=== PATIENT | male | born 1985 | race African-American/Black ===

== ENCOUNTER 2019-08-16 22:07 | Emergency (ER) | payer OTHER ==
[~2019-08-16] VITALS: Ht 172.7 cm; Wt 72.6 kg
[2019-08-16] MEDS ORDERED: QUET100T PO (22:16)
--- NOTE | 2019-08-16 22:25 | NUR ---
Dr. Quinteros at bedside for MSE
[2019-08-16] MEDS ORDERED: QUETIAPINE FUMARATE 25 MG TABLET PO ONE (22:30)
[2019-08-16] MEDS ORDERED: QUETIAPINE FUMARATE 25 MG TABLET ONE (22:37)
[2019-08-16 22:43] LABS: BASOPHILS # (AUTO) 0.1 K/uL (0.0-8.0); BASOPHILS % (AUTO) 0.6 % (0.0-2.0); EOSINOPHILS # (AUTO) 0.8 K/uL (0.0-0.7); EOSINOPHILS % (AUTO) 7.7 % (0.0-7.0); HEMATOCRIT 46.3 % (36.7-47.1); HEMOGLOBIN 15.5 g/dL (12.5-16.3); LYMPHOCYTES # (AUTO) 3.2 K/uL (20.0-40.0); LYMPHOCYTES % (AUTO) 30.3 % (20.5-51.5); MEAN CORPUSCULAR HEMOGLOBIN 29.4 uug (23.8-33.4); MEAN CORPUSCULAR HGB CONC 34 g/dL (32.5-36.3); MONOCYTES # (AUTO) 0.5 K/uL (2.0-10.0); NEUTROPHILS # (AUTO) 5.9 K/uL (1.8-8.9); NEUTROPHILS % (AUTO) 56.4 % (38.5-71.5); PLATELET COUNT (AUTO) 160 K/uL (152-348); RED BLOOD CELL COUNT(AUTO) 5.26 MIL/uL (4.06-5.63); WHITE BLOOD COUNT (AUTO) 10.5 K/uL (3.6-10.2)
[2019-08-16 22:55] LABS: CARBON DIOXIDE 31 mmol/L (21-32); CHLORIDE 102 mmol/L (98-107); CREATININE 1.3 mg/dL (0.6-1.3); GLUCOSE 85 mg/dL (74-106); POTASSIUM 3.3 mmol/L (3.5-5.1); UREA NITROGEN, BLOOD 14 mg/dL (7-18)
[2019-08-16 22:56] LABS: *BILIRUBIN,URIN NEGATIVE (NEGATIVE); *BLOOD, URINE 1+ (NEGATIVE); *CLARITY,URINE CLEAR (CLEAR); *COLOR,URINE YELLOW (YELLOW); *KETONES,URINE NEGATIVE (NEGATIVE); *UROBILINOGEN,URINE 0.2 E.U./dl (NORMAL); LEUKOCYTE ESTERASE ,URINE NEGATIVE (NEGATIVE); NITRITE, URINE NEGATIVE (NEGATIVE); PH,URINE 6.5 (5.0-8.0); UGLUCOSE NEGATIVE (NEGATIVE)
[2019-08-16 23:00] LABS: ALANINE AMINOTRANSFERASE 46 U/L (16-63); ALKALINE PHOSPHATASE 78 U/L (50-136); ASPARTATE AMINOTRANSFERASE 31 U/L (15-37); BILIRUBIN,DIRECT 0.2 mg/dL (0.0-0.2); BILIRUBIN,TOTAL 0.8 mg/dL (0.2-1.0); TOTAL PROTEIN, SERUM 7.7 g/dL (6.4-8.2)
[2019-08-16 23:01] LABS: ACETAMINOPHEN < 2.0 ug/mL (10-30); ETHANOL < 3 MG/DL (0-0)
[2019-08-16 23:02] LABS: *AMPHETAMINE, URINE NEGATIVE (NEGATIVE); *BARBITURATE, URINE NEGATIVE (NEGATIVE); *CANNABINOID, URINE POSITIVE (NEGATIVE); *COCCAINE, URINE NEGATIVE (NEGATIVE); *OPIATE, URINE NEGATIVE (NEGATIVE); *PHENCYCLIDINE SCREEN,URINE NEGATIVE (NEGATIVE)
--- NOTE | 2019-08-16 23:04 | NUR ---
Pt is medically cleared by Dr. Quinteros
[2019-08-16 23:07] LABS: BACTERIA,URINE FEW /HPF (NONE SEEN); SQUAMOUS EPITHELIAL CELL,UR FEW /HPF (NONE SEEN); WBC,URINE 0-3 /HPF (0-3)
--- NOTE | 2019-08-16 23:12 | NUR ---
Called Jackelyn Arana awaiting for call back
[2019-08-16] MEDS ORDERED: POTASSIUM CHLORIDE 20 MEQ TAB.PRT.SR PO ONE (23:15)
[2019-08-16] MEDS ORDERED: POTASSIUM CHLORIDE 20 MEQ TAB.PRT.SR ONE (23:29)
--- NOTE | 2019-08-16 23:41 | NUR ---
Called [facility] Spoke with ANNE-MARIE to ask for a male bed for a voluntary psych admission. He said to fax clinicals to: [phone]. Relayed information to Aneta Gtz and Dr. Quinteros. Addendum: 08/17/19 at 0000 by AEJORGE LUISGIO called [phone]
--- NOTE | 2019-08-17 00:01 | NUR ---
Faxed Clinicals to [facility] Confirmed receive of the fax with [facility] Awaiting for call back regarding bed status
--- NOTE | 2019-08-17 00:59 | NUR ---
Received call from [facility]/intake Pt accepted for admission Receiving physician: Dr. Madden Pt [place] for transfer at 0700 OK to give report to Unit
--- NOTE | 2019-08-17 03:36 | NUR ---
pt in bed asleep no s/s of distress respirations even and unlabored will continue to monitor
--- NOTE | 2019-08-17 03:56 | NUR ---
per Dr. Quinteros, MARZENA to transfer pt via taxi to [facility]
--- NOTE | 2019-08-17 04:05 | NUR ---
report given to ROSALIA cota at [facility].
--- NOTE | 2019-08-17 04:17 | NUR ---
[facility] contacted for pickup.ETA will be 10-20 minutes. Aneta LINDSEY notified.
--- NOTE | 2019-08-17 04:22 | NUR ---
ETA provided to Olivia DURHAM
--- NOTE | 2019-08-17 04:41 | NUR ---
Transfered pt via taxi, cab#62 pt a/ox4. able to speak in complete sentences. follows commands respirations even and unlabored no s/s of distress all belongings with pt ambulatory with steady gait
== END 2019-08-17 04:41 ==
LOC: ER 22:12
DX: R44.0 Auditory hallucinations (principal); F22 Delusional disorders
CPT/HCPCS: 36415; 80048; 80076; 80307 ×2; 80329; 81001; 85025; 99285; G0480; A4663

== ENCOUNTER 2019-09-27 15:19 | Emergency (ER) | payer OTHER ==
[~2019-09-27] VITALS: Ht 175.3 cm; Wt 68.0 kg
[~2019-09-27 15:19] MED LIST: QUET100T PO
--- NOTE | 2019-09-27 15:53 | NUR ---
patient placed on a hospital gown. all belongings taken from patient. provided safe environment. Stock Unloader made aware. no 1:1 sitter available at this time.
[2019-09-27] MEDS ORDERED: OLANZAPINE 5 MG TABLET PO ONE (16:00)
[2019-09-27 16:02] LABS: *BILIRUBIN,URIN NEGATIVE (NEGATIVE); *BLOOD, URINE NEGATIVE (NEGATIVE); *CLARITY,URINE CLEAR (CLEAR); *COLOR,URINE YELLOW (YELLOW); *KETONES,URINE TRACE (NEGATIVE); LEUKOCYTE ESTERASE ,URINE NEGATIVE (NEGATIVE); NITRITE, URINE NEGATIVE (NEGATIVE); PH,URINE 7.5 (5.0-8.0); UGLUCOSE NEGATIVE (NEGATIVE)
[2019-09-27 16:07] LABS: BASOPHILS % (AUTO) 0.7 % (0.0-2.0); EOSINOPHILS # (AUTO) 0.4 K/uL (0.0-0.7); EOSINOPHILS % (AUTO) 6.6 % (0.0-7.0); HEMATOCRIT 40.7 % (36.7-47.1); HEMOGLOBIN 13.7 g/dL (12.5-16.3); LYMPHOCYTES # (AUTO) 2.8 K/uL (20.0-40.0); LYMPHOCYTES % (AUTO) 45.1 % (20.5-51.5); MEAN CORPUSCULAR HEMOGLOBIN 29.4 uug (23.8-33.4); MEAN CORPUSCULAR HGB CONC 34 g/dL (32.5-36.3); MEAN CORPUSCULAR VOLUME 87.7 fL (73.0-96.2); MONOCYTES # (AUTO) 0.4 K/uL (2.0-10.0); MONOCYTES % (AUTO) 6.9 % (0.0-11.0); NEUTROPHILS # (AUTO) 2.5 K/uL (1.8-8.9); NEUTROPHILS % (AUTO) 40.7 % (38.5-71.5); PLATELET COUNT (AUTO) 147 K/uL (152-348); RED BLOOD CELL COUNT(AUTO) 4.65 MIL/uL (4.06-5.63); WHITE BLOOD COUNT (AUTO) 6.1 K/uL (3.6-10.2)
[2019-09-27] MEDS ORDERED: OLANZAPINE 5 MG TABLET ONE (16:13)
[2019-09-27 16:17] LABS: *AMPHETAMINE, URINE NEGATIVE (NEGATIVE); *BARBITURATE, URINE NEGATIVE (NEGATIVE); *CANNABINOID, URINE POSITIVE (NEGATIVE); *COCCAINE, URINE NEGATIVE (NEGATIVE); *OPIATE, URINE NEGATIVE (NEGATIVE); *PHENCYCLIDINE SCREEN,URINE NEGATIVE (NEGATIVE)
[2019-09-27 16:24] LABS: ALANINE AMINOTRANSFERASE 28 U/L (16-63); ALKALINE PHOSPHATASE 74 U/L (50-136); ASPARTATE AMINOTRANSFERASE 30 U/L (15-37); BILIRUBIN,DIRECT 0.1 mg/dL (0.0-0.2); BILIRUBIN,TOTAL 0.5 mg/dL (0.2-1.0); CARBON DIOXIDE 30 mmol/L (21-32); CHLORIDE 103 mmol/L (98-107); CREATININE 1.1 mg/dL (0.6-1.3); GLUCOSE 87 mg/dL (74-106); UREA NITROGEN, BLOOD 13 mg/dL (7-18)
[2019-09-27 16:25] LABS: ACETAMINOPHEN < 2.0 ug/mL (10-30)
[2019-09-27] MEDS ORDERED: QUETIAPINE FUMARATE 200 MG TABLET PO STA (16:29)
[2019-09-27 16:31] LABS: ETHANOL 64 MG/DL (0-0)
--- NOTE | 2019-09-27 16:36 | NUR ---
Pt remains calm and cooperative, pending lab results.
[2019-09-27] MEDS ORDERED: QUETIAPINE FUMARATE 200 MG TABLET ONE (16:38)
--- NOTE | 2019-09-27 16:57 | NUR ---
PATIENT HAS BEEN MEDICALLY CLEARED BY DR. RASMUSSEN
--- NOTE | 2019-09-27 17:20 | NUR ---
Spoke with Ana at [facility] in [facility] intake department. Requested information faxed to [phone]. States she will review the information and call back.
--- NOTE | 2019-09-27 18:03 | NUR ---
Patient in bed sleeping but easily arousable. Breathing even and unlabored. NAD noted
--- NOTE | 2019-09-27 18:42 | NUR ---
faxed over face lai and dao confirmed receipt.
--- NOTE | 2019-09-27 19:04 | NUR ---
report given to merna LINDSEY
--- NOTE | 2019-09-27 19:22 | NUR ---
Received call from [facility], states they did not receive all pages of clinicals. Faxed over summary report to George at [phone].
--- NOTE | 2019-09-27 19:41 | NUR ---
Called [facility] intake (phone#[phone]) & spoke with George who confirmed he received the patient's clinical report. States he will call back when there is update from auto mechanic supervisor. Patient is resting with eyes closed at this time. Respirations even & unlabored. Will continue to monitor.
[2019-09-27 19:49] LABS: BACTERIA,URINE NONE SEEN /HPF (NONE SEEN); RBC,URINE 0-3 /HPF (0-3); WBC,URINE 0-3 /HPF (0-3)
[2019-09-27 19:50] LABS: MUCUS,URINE FEW /LPF (0-FEW)
--- NOTE | 2019-09-27 20:53 | NUR ---
Received call from George bernard states patient has been accepted at [facility]. Phone# for report is [phone]. Called [facility] for transport. ETA pickup in 30 to 45 min.
--- NOTE | 2019-09-27 21:23 | NUR ---
[facility] Addendum: 09/27/19 at 2123 by TPADOLINA [facility] [address] here to transport patient to [facility]. Report given to Jennifer. All patient's belongings given to managing jeweler.
== END 2019-09-27 21:32 ==
LOC: ER 15:19
DX: F23 Brief psychotic disorder (principal); R45.851 Suicidal ideations; F10.229 Alcohol dependence with intoxication, unspecified; F15.20 Other stimulant dependence, uncomplicated; Y90.3 Blood alcohol level of 60-79 mg/100 ml; F17.290 Nicotine dependence, other tobacco product, uncomplicated; F12.20 Cannabis dependence, uncomplicated; Z91.5 Personal history of self-harm; Z59.0 Homelessness; Z86.59 Personal history of other mental and behavioral disorders
CPT/HCPCS: 36415; 80048; 80076; 80307 ×2; 80329; 81001; 85025; 87426; 99285; 99406; G0480; A4663

== ENCOUNTER 2020-09-16 02:39 | Emergency (ER) | payer OTHER ==
[~2020-09-16] VITALS: Ht 170.2 cm; Wt 72.6 kg
[2020-09-16] MEDS ORDERED: ativan (03:27)
[2020-09-16] MEDS ORDERED: QUET300T2 PO (03:27)
--- NOTE | 2020-09-16 03:53 | NUR ---
Patient remains in restroom. Each time I go to room to retrieve blood specimens and obtain ekg pt desires to leave and provide urine sample.
[2020-09-16 04:37] LABS: HEMATOCRIT 47.1 % (36.7-47.1); MEAN CORPUSCULAR HEMOGLOBIN 31.2 uug (23.8-33.4); MEAN CORPUSCULAR VOLUME 90.6 fL (73.0-96.2); PLATELET COUNT (AUTO) 176 K/uL (152-348)
[2020-09-16 04:50] LABS: CARBON DIOXIDE 27 mmol/L (21-32); CHLORIDE 104 mmol/L (98-107); CREATININE 1.5 mg/dL (0.6-1.3); GLUCOSE 86 mg/dL (74-106); POTASSIUM 3.3 mmol/L (3.5-5.1); UREA NITROGEN, BLOOD 13 mg/dL (7-18)
[2020-09-16 04:55] LABS: ETHANOL < 0 MG/DL (0-0)
[2020-09-16 04:56] LABS: ALANINE AMINOTRANSFERASE 44 U/L (16-63); ALKALINE PHOSPHATASE 77 U/L (50-136); ASPARTATE AMINOTRANSFERASE 43 U/L (15-37); BILIRUBIN,DIRECT 0.2 mg/dL (0.0-0.2); BILIRUBIN,TOTAL 0.7 mg/dL (0.2-1.0); CREATINE KINASE, TOTAL 693 U/L (39-308); TOTAL PROTEIN, SERUM 8.3 g/dL (6.4-8.2)
[2020-09-16 04:57] LABS: ACETAMINOPHEN < 0.0 ug/mL (10-30)
[2020-09-16 05:03] LABS: THYROID STIMULATING HORMONE 1.954 mIU/mL (0.358-3.740)
[2020-09-16] MEDS ORDERED: LORAZEPAM 2 MG/1 ML VIAL ONE ×4 (06:06→22:27)
[2020-09-16 06:18] LABS: *BLOOD, URINE 2+ (NEGATIVE); *CLARITY,URINE CLEAR (CLEAR); *COLOR,URINE YELLOW (YELLOW); *KETONES,URINE 1+ (NEGATIVE); LEUKOCYTE ESTERASE ,URINE NEGATIVE (NEGATIVE); NITRITE, URINE NEGATIVE (NEGATIVE); UGLUCOSE NEGATIVE (NEGATIVE)
[2020-09-16 06:21] LABS: *BILIRUBIN,URIN 1+ (NEGATIVE)
[2020-09-16] MEDS ORDERED: LORAZEPAM 2 MG/1 ML VIAL IV ONE ×4 (06:30→22:15)
[2020-09-16 06:32] LABS: *AMPHETAMINE, URINE POSITIVE (NEGATIVE); *CANNABINOID, URINE POSITIVE (NEGATIVE); *COCCAINE, URINE POSITIVE (NEGATIVE); *OPIATE, URINE NEGATIVE (NEGATIVE); *PHENCYCLIDINE SCREEN,URINE NEGATIVE (NEGATIVE)
[2020-09-16 06:37] LABS: BACTERIA,URINE NONE SEEN /HPF (NONE SEEN); MUCUS,URINE FEW /LPF (0-FEW); SQUAMOUS EPITHELIAL CELL,UR FEW /HPF (NONE SEEN); WBC,URINE 0-3 /HPF (0-3)
[2020-09-16] MEDS ORDERED: OLANZAPINE 5 MG TABLET ONE (07:10)
[2020-09-16] MEDS ORDERED: OLANZAPINE 5 MG TABLET PO ONE (07:15)
--- NOTE | 2020-09-16 07:19 | NUR ---
recived the pt in the room, pt walking around, does not want to stay in his room, security at door.
--- NOTE | 2020-09-16 07:45 | NUR ---
Pt is paranoid, stands at the door in room 3, keeps walking around in the ER and attempted to walk into another pt's room. Pt refused to go back to him room, xin little was called. Pt was brought back to room 3 after verbal de-escalation. Requested 1:1 sitter for safety, per nursing supervisor electrolytic tinning there is no one available, per security they are short staffed and do not have anyone availabe.
--- NOTE | 2020-09-16 07:51 | NUR ---
late entry: xin dewitt called, security at bedside.
[2020-09-16] MEDS ORDERED: HALOPERIDOL LACTATE 5 MG/1 ML VIAL IV ONE ×2 (08:15→10:00)
[2020-09-16] MEDS ORDERED: diphenhydrAMINE 50 MG/1 ML VIAL IV ONE (08:15)
--- NOTE | 2020-09-16 08:19 | NUR ---
pt wandering about in er, trying to look inside pts room, visual hallucination of seeing some body. md notified, meds order recieved.
[2020-09-16] MEDS ORDERED: diphenhydrAMINE 50 MG/1 ML VIAL ONE (08:21)
[2020-09-16] MEDS ORDERED: HALOPERIDOL LACTATE 5 MG/1 ML VIAL ONE ×2 (08:22→10:23)
--- NOTE | 2020-09-16 08:43 | NUR ---
code gra called, security at bedside.
--- NOTE | 2020-09-16 09:36 | NUR ---
Sampson abdi in ED - 09/21/20 at 1714 by SONYA xin dewitt called, security at bedside placed the pt on 4 point restaint.
--- NOTE | 2020-09-16 09:36 | NUR ---
code dewitt called.
--- NOTE | 2020-09-16 09:38 | NUR ---
pt coming out of room, talking loud, interrupting pt care,
--- NOTE | 2020-09-16 09:45 | NUR ---
security placed restraint on the pt per Dr. Otero order.
[2020-09-16] MEDS ORDERED: IV NORMAL SALINE 1000 ML BAG IV ONE (10:00)
--- NOTE | 2020-09-16 12:32 | NUR ---
PT RESTING, NO SIGN OF DISTRESS, VSS.
--- NOTE | 2020-09-16 14:26 | NUR ---
pt resting, arousable, moving in bed.
--- NOTE | 2020-09-16 16:10 | NUR ---
noticed change on the ekg on the monitor. aware. Addendum: 09/16/20 at 1727 by SONYA pt denies any cp, palpitation,nausea/vomitting, dizziness, sob at this time.
[2020-09-16 16:37] LABS: CREATININE 1.2 mg/dL (0.6-1.3); POTASSIUM 3.8 mmol/L (3.5-5.1)
--- NOTE | 2020-09-16 16:51 | NUR ---
[facility] dinner tramago provided for pt. pts sister, Jacquelyn Yo called and gave her number for any concerns [phone]
--- NOTE | 2020-09-16 18:34 | NUR ---
change in bedisde ekg rhythm, please refer to print of the bedside ekg Addendum: 09/16/20 at 1835 by SONYA organized rhythm with p waves noticeable
--- NOTE | 2020-09-16 19:52 | NUR ---
Called Kailee from crisis team made aware of patient's condition. Per Kailee she will call us back for an ETA since she is on a call at the moment.
--- NOTE | 2020-09-16 21:16 | NUR ---
Kailee called facility and gave ETA of 40 minutes.
--- NOTE | 2020-09-16 21:58 | NUR ---
Kailee at bedside to eval patient.
--- NOTE | 2020-09-16 23:09 | NUR ---
Patient is resting comfortably in bed with eyes closed. Calm and cooperative. Denies any SI. VSS.
--- NOTE | 2020-09-16 23:48 | NUR ---
Faxed over another facesheet and COVID result to [facility]. .
--- NOTE | 2020-09-17 01:15 | NUR ---
VSS, denies any pain/discomfort. Patient resting in bed. Breathing is even and unlabored.
--- NOTE | 2020-09-17 01:43 | NUR ---
Called [facility] psych unit at [phone] and spoke with Leobardo, patient going to room 123 bed A.
--- NOTE | 2020-09-17 01:51 | NUR ---
Called [facility], spoke with Frank, provided with ETA of 75-90 mins.
--- NOTE | 2020-09-17 03:35 | NUR ---
Patient is resting comfortably in bed with eyes closed. Offered restroom privilages, pt refused. Denies any n/v/d. Denies any pain/discomfort at this moment.
--- NOTE | 2020-09-17 04:15 | NUR ---
0344 [address] AT BEDSIDE, [facility] MADE AWARE THAT PATIENT IS GOING TO THEIR FACILITY.
--- NOTE | 2020-09-17 04:21 | NUR ---
Patient Tranfers to outside Facility ([place]) Physician:Dr. Akbar Location: Room 123 Bed A
--- NOTE | 2020-09-21 09:45 | NUR ---
Sampson abdi in [facility] - 09/21/20 at 1715 by SONYA security placed restraint on the pt per md order.
== END 2020-09-17 04:26 ==
LOC: ER 02:42 → MERGE 02:42 → ER 09-17 04:26
DX: F19.159 Other psychoactive substance abuse with psychoactive substance-induced psychotic disorder, unspecified (principal); Z20.822 Contact with and (suspected) exposure to COVID-19; I44.1 Atrioventricular block, second degree; F20.9 Schizophrenia, unspecified; F31.9 Bipolar disorder, unspecified; F17.210 Nicotine dependence, cigarettes, uncomplicated; F15.10 Other stimulant abuse, uncomplicated; Z82.49 Family history of ischemic heart disease and other diseases of the circulatory system
CPT/HCPCS: 36415; 71045; 80048 ×2; 80076; 80299; 80307; 80320; 81001; 82550 ×2; 84443; 84484; 85025; 87426; 93005 ×3; 96361; 96374; 96375; 96376; 99291; J1200; J1630 ×2; J2060 ×4; 70030-TC; A4663; G0480; J7030

== ENCOUNTER 2020-10-03 03:29 | Emergency (ER) | payer OTHER ==
[~2020-10-03] VITALS: Ht 175.3 cm; Wt 72.6 kg
[~2020-10-03 03:29] MED LIST changes: +QUET300T2 PO; +ativan
[2020-10-03] MEDS ORDERED: LORAZEPAM 0.5 MG TABLET PO ONE (03:45)
[2020-10-03] MEDS ORDERED: OLANZAPINE 5 MG TABLET PO ONE (03:45)
[2020-10-03] MEDS ORDERED: OLAN5TAB3 PO (03:54)
[2020-10-03] MEDS ORDERED: LORA-259 PO (03:54)
[2020-10-03] MEDS ORDERED: OLANZAPINE 5 MG TABLET ONE (03:54)
[2020-10-03] MEDS ORDERED: LORAZEPAM 1 MG TABLET ONE (03:54)
--- NOTE | 2020-10-03 07:30 | NUR ---
Pt is anxious and paranoid with auditory hallucinations. Pt is wandering around in room 2 and in the ER department. Pt was assisted back to room 2b multiple times. Pt denies any SI/HI and ambulates with steady gait. Pt is high risk for elopement, 1:1 sitter was requested for pt safety but there is no one available at this time, ER is short staffed as well with only 2 RN's on duty.
[2020-10-03 07:41] LABS: CARBON DIOXIDE 26 mmol/L (21-32); CHLORIDE 107 mmol/L (98-107); CREATININE 1.1 mg/dL (0.6-1.3); GLUCOSE 82 mg/dL (74-106); POTASSIUM 3.4 mmol/L (3.5-5.1); UREA NITROGEN, BLOOD 15 mg/dL (7-18)
[2020-10-03 07:43] LABS: ETHANOL < 3 MG/DL (0-0)
[2020-10-03 07:47] LABS: ALANINE AMINOTRANSFERASE 42 U/L (16-63); ALKALINE PHOSPHATASE 55 U/L (50-136); ASPARTATE AMINOTRANSFERASE 32 U/L (15-37); BILIRUBIN,DIRECT 0.2 mg/dL (0.0-0.2); BILIRUBIN,TOTAL 0.6 mg/dL (0.2-1.0); TOTAL PROTEIN, SERUM 6.8 g/dL (6.4-8.2)
[2020-10-03 07:54] LABS: HEMATOCRIT 42.1 % (36.7-47.1); MEAN CORPUSCULAR HEMOGLOBIN 30.6 uug (23.8-33.4); MEAN CORPUSCULAR VOLUME 89.1 fL (73.0-96.2); PLATELET COUNT (AUTO) 125 K/uL (152-348)
[2020-10-03 08:03] LABS: *AMPHETAMINE, URINE POSITIVE (NEGATIVE); *CANNABINOID, URINE POSITIVE (NEGATIVE); *COCCAINE, URINE NEGATIVE (NEGATIVE); *OPIATE, URINE NEGATIVE (NEGATIVE); *PHENCYCLIDINE SCREEN,URINE NEGATIVE (NEGATIVE)
[2020-10-03 08:10] LABS: ACETAMINOPHEN 28.7 ug/mL (10-30)
--- NOTE | 2020-10-03 08:30 | NUR ---
DR BEACH RE-EVALUATED THE PT AND DISCUSSED PT's CASE WITH CRISIS MIDDLEWARE SYSTEMS ARCHITECT LUIS. PT WAS D/C'd TO HOME ACCORDING TO DR BEACH ORDERS. GAIT IS STABLE. NO S/S OF DISTRESS AT THE TIME OF DISCHARGE. PT DENIES PAIN. NO N/V, NO SOB. D/C INSTRUCTIONS GIVEN TO THE PT BY DR BEACH.
[2020-10-03 08:32] VITALS: BP 137/78
[2020-10-03 08:49] LABS: *BILIRUBIN,URIN NEGATIVE (NEGATIVE); *BLOOD, URINE 2+ (NEGATIVE); *CLARITY,URINE CLOUDY (CLEAR); *COLOR,URINE YELLOW (YELLOW); *KETONES,URINE NEGATIVE (NEGATIVE); *UROBILINOGEN,URINE 0.2 E.U./dl (NORMAL); LEUKOCYTE ESTERASE ,URINE NEGATIVE (NEGATIVE); NITRITE, URINE NEGATIVE (NEGATIVE); PH,URINE 5.5 (5.0-8.0); UGLUCOSE NEGATIVE (NEGATIVE)
[2020-10-03 09:32] LABS: MUCUS,URINE MANY /LPF (0-FEW)
[2020-10-03 09:35] LABS: RBC,URINE 0-3 /HPF (0-3); WBC,URINE 0-3 /HPF (0-3)
[2020-10-03 09:36] LABS: BACTERIA,URINE FEW /HPF (NONE SEEN)
== END 2020-10-03 08:34 | disposition home or self-care (01) ==
LOC: ER 03:32
DX: F15.129 Other stimulant abuse with intoxication, unspecified (principal); F15.150 Other stimulant abuse with stimulant-induced psychotic disorder with delusions; F20.9 Schizophrenia, unspecified; F31.9 Bipolar disorder, unspecified; F17.210 Nicotine dependence, cigarettes, uncomplicated; R03.0 Elevated blood-pressure reading, without diagnosis of hypertension; F41.9 Anxiety disorder, unspecified
CPT/HCPCS: 36415; 85025; A4663; G0480

== ENCOUNTER 2021-05-21 00:30 | Emergency (ER) | payer OTHER ==
[~2021-05-21] VITALS: Ht 175.3 cm; Wt 72.6 kg
[~2021-05-21 00:30] MED LIST changes: +LORA-259 PO; +OLAN5TAB3 PO
--- NOTE | 2021-05-21 00:58 | NUR ---
pt ambulated to bed 1b, feeling paranoid, hears voices. reports use of meth. hx schizophrenia pt c/o headache
[2021-05-21] MEDS ORDERED: ONDANSETRON ODT 4 MG TAB.RAPDIS SL ONE (01:00)
[2021-05-21] MEDS ORDERED: OLANZAPINE 5 MG TABLET PO ONE (01:00)
[2021-05-21] MEDS ORDERED: LORAZEPAM 0.5 MG TABLET PO ONE (01:00)
[2021-05-21] MEDS ORDERED: HYDROCODONE/APAP 5-325MG TABLET PO ONE (01:00)
--- NOTE | 2021-05-21 01:02 | NUR ---
Dr. Quinteros at bedside for MSE.
[2021-05-21] MEDS ORDERED: OLAN5TAB3 PO (01:14)
[2021-05-21] MEDS ORDERED: LORA-259 PO (01:14)
[2021-05-21] MEDS ORDERED: LORAZEPAM 1 MG TABLET ONE (01:16)
[2021-05-21] MEDS ORDERED: ONDANSETRON ODT 4 MG TAB.RAPDIS ONE (01:16)
[2021-05-21] MEDS ORDERED: OLANZAPINE 5 MG TABLET ONE (01:17)
[2021-05-21] MEDS ORDERED: HYDROCODONE/APAP 5-325MG TABLET ONE (01:17)
--- NOTE | 2021-05-21 02:05 | NUR ---
patient taken to ct scan
--- NOTE | 2021-05-21 02:29 | NUR ---
pt returned from cat scan.
--- NOTE | 2021-05-21 03:45 | NUR ---
call to [facility] still waiting on cat scan results.
--- NOTE | 2021-05-21 04:35 | NUR ---
v/s 120/60, p-72, rr 18 temp. 97.6 02 sat 97% room air. Dr lacey spoke and medically cleared patient for discharge, patient refused discharge and refused sign the discharge papers, security called. patient is too loud and scarred the other patients. patient was escorted by the security out of the ER.
[2021-05-21 04:42] VITALS: BP 120/60
== END 2021-05-21 04:45 | disposition home or self-care (01) ==
LOC: ER 00:35
DX: F22 Delusional disorders (principal); F20.9 Schizophrenia, unspecified; R51.9 Headache, unspecified; F15.10 Other stimulant abuse, uncomplicated; F31.9 Bipolar disorder, unspecified
CPT/HCPCS: 70450; A4663; Q0162

== ENCOUNTER 2021-05-21 06:31 | Emergency (ER) | payer SELFPAY ==
--- NOTE | 2021-05-21 07:19 | NUR ---
called pt in the waiting room. explained to the pt that he was seen and examined thoroughly last night here and was d/marlene home this morning with px and referal to psychiatrics, and that there is nothing else that can be done in the emergency department with the same complain that he was examined by Dr. Quinteros. pt decided to leave and not being triaged. emphasized that the pt has fill the px and start the meds immediately. pt left with stady gait, no sign of distress.
== END 2021-05-21 07:26 | disposition left against medical advice (07) ==
LOC: ER 06:34
DX: Z53.21 Procedure and treatment not carried out due to patient leaving prior to being seen by health care provider (principal)

== ENCOUNTER 2021-10-30 00:21 | Emergency (ER) | payer OTHER ==
[~2021-10-30] VITALS: Ht 175.3 cm; Wt 65.8 kg
--- NOTE | 2021-10-30 01:00 | NUR ---
Patient A/Ox4. NAD noted. Ambulatory with steady gait.
--- NOTE | 2021-10-30 01:05 | NUR ---
Dr. Quinteros at bedside. MSE in progress.
[2021-10-30 01:53] LABS: HEMATOCRIT 41.6 % (36.7-47.1); MEAN CORPUSCULAR HEMOGLOBIN 30.6 uug (23.8-33.4); MEAN CORPUSCULAR VOLUME 88.5 fL (73.0-96.2); PLATELET COUNT (AUTO) 157 K/uL (152-348)
[2021-10-30 02:06] LABS: ETHANOL 10 MG/DL (0-0)
[2021-10-30 02:09] LABS: ACETAMINOPHEN < 2.0 ug/mL (10-30); ALANINE AMINOTRANSFERASE 51 U/L (16-63); ALKALINE PHOSPHATASE 56 U/L (50-136); ASPARTATE AMINOTRANSFERASE 30 U/L (15-37); BILIRUBIN,DIRECT 0.1 mg/dL (0.0-0.2); BILIRUBIN,TOTAL 0.5 mg/dL (0.2-1.0); CARBON DIOXIDE 29 mmol/L (21-32); CHLORIDE 106 mmol/L (98-107); CREATININE 1.6 mg/dL (0.6-1.3); GLUCOSE 88 mg/dL (74-106); TOTAL PROTEIN, SERUM 7.7 g/dL (6.4-8.2); UREA NITROGEN, BLOOD 22 mg/dL (7-18)
[2021-10-30] MEDS ORDERED: OLANZAPINE 5 MG TABLET ONE (03:14)
[2021-10-30] MEDS ORDERED: OLANZAPINE 5 MG TABLET PO ONE (03:15)
[2021-10-30 03:36] LABS: *BILIRUBIN,URIN NEGATIVE (NEGATIVE); *BLOOD, URINE 1+ (NEGATIVE); *CLARITY,URINE CLEAR (CLEAR); *COLOR,URINE YELLOW (YELLOW); *KETONES,URINE TRACE (NEGATIVE); *UROBILINOGEN,URINE 0.2 E.U./dl (NORMAL); LEUKOCYTE ESTERASE ,URINE NEGATIVE (NEGATIVE); NITRITE, URINE NEGATIVE (NEGATIVE); UGLUCOSE NEGATIVE (NEGATIVE)
[2021-10-30 03:45] LABS: BACTERIA,URINE NONE SEEN /HPF (NONE SEEN); SQUAMOUS EPITHELIAL CELL,UR NONE SEEN /HPF (NONE SEEN); WBC,URINE 0-3 /HPF (0-3)
[2021-10-30 03:55] LABS: *AMPHETAMINE, URINE POSITIVE (NEGATIVE); *CANNABINOID, URINE NEGATIVE (NEGATIVE); *COCCAINE, URINE NEGATIVE (NEGATIVE); *OPIATE, URINE NEGATIVE (NEGATIVE); *PHENCYCLIDINE SCREEN,URINE NEGATIVE (NEGATIVE)
--- NOTE | 2021-10-30 05:57 | NUR ---
Patient will be transfered to [facility] under care of Dr Merritt - unit 1 call for report [phone]
--- NOTE | 2021-10-30 06:50 | NUR ---
Called [facility]. Report given to Miri LINDSEY (unit 1).
--- NOTE | 2021-10-30 07:05 | NUR ---
[facility] contacted. They will arrive between 0930 and 1000 to transfer patient to [facility].
--- NOTE | 2021-10-30 08:42 | NUR ---
PT STILL AWAITING TRANSPORT TO [facility].
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
--- NOTE | 2021-10-30 10:42 | NUR ---
Patient Tranfers to outside Facility: [facility] Physician:Murtaza Location: Unit 1 RN: Miri accepted report at 0705am EMT: Derrick [place] accepted SBAR@1040 of [facility]
== END 2021-10-30 10:48 ==
LOC: ER 01:23
DX: F20.9 Schizophrenia, unspecified (principal); F15.10 Other stimulant abuse, uncomplicated; F31.9 Bipolar disorder, unspecified; Z59.01 Sheltered homelessness
CPT/HCPCS: 36415; 85025; A4663; G0480

== ENCOUNTER 2022-11-07 22:52 | Emergency (ER) | payer OTHER ==
[~2022-11-07] VITALS: Ht 175.3 cm; Wt 72.6 kg
[2022-11-08] MEDS ORDERED: ACETAMINOPHEN ES 500 MG TABLET PO ONE
[2022-11-08 00:49] LABS: ALBUMIN 3.9 g/dL (3.4-5.0); BILIRUBIN,DIRECT 0.1 mg/dL (0.0-0.2); BILIRUBIN,TOTAL 0.3 mg/dL (0.2-1.0); CREATININE 1.1 mg/dL (0.6-1.3); POTASSIUM 3.8 mmol/L (3.5-5.1); TOTAL PROTEIN, SERUM 7.7 g/dL (6.4-8.2)
[2022-11-08 00:54] LABS: *BILIRUBIN,URIN NEGATIVE (NEGATIVE); *CLARITY,URINE CLEAR (CLEAR); *COLOR,URINE YELLOW (YELLOW); *KETONES,URINE NEGATIVE (NEGATIVE); *PROTEIN,URINE NEGATIVE (NEGATIVE); *UROBILINOGEN,URINE 0.2 E.U./dl (NORMAL); LEUKOCYTE ESTERASE ,URINE NEGATIVE (NEGATIVE); NITRITE, URINE NEGATIVE (NEGATIVE); PH,URINE 5.5 (5.0-8.0); UGLUCOSE NEGATIVE (NEGATIVE)
[2022-11-08 00:56] LABS: *BLOOD, URINE NEGATIVE (NEGATIVE)
[2022-11-08 00:58] LABS: BASOPHILS # (AUTO) 0.1 K/UL (0.0-0.2); BASOPHILS % (AUTO) 0.8 % (0.0-2.0); EOSINOPHILS # (AUTO) 0.1 K/uL (0.0-0.7); EOSINOPHILS % (AUTO) 1.3 % (0.0-7.0); HEMATOCRIT 40.5 % (36.7-47.1); HEMOGLOBIN 13.8 g/dL (12.5-16.3); LYMPHOCYTES # (AUTO) 2.4 K/uL (0.8-4.8); LYMPHOCYTES % (AUTO) 26.1 % (20.5-51.5); MEAN CORPUSCULAR HEMOGLOBIN 29.1 uug (23.8-33.4); MEAN CORPUSCULAR HGB CONC 34 g/dL (32.5-36.3); MEAN CORPUSCULAR VOLUME 85.6 fL (73.0-96.2); MONOCYTES # (AUTO) 0.5 K/uL (0.1-1.30); MONOCYTES % (AUTO) 5.7 % (0.0-11.0); NEUTROPHILS % (AUTO) 66.1 % (38.5-71.5); PLATELET COUNT (AUTO) 248 K/uL (152-348); RED BLOOD CELL COUNT(AUTO) 4.73 MIL/uL (4.06-5.63); RED CELL DISTRIBUTION WIDTH 13.9 % (12.1-16.2); WHITE BLOOD COUNT (AUTO) 9.1 K/uL (3.6-10.2)
[2022-11-08 01:05] LABS: *AMPHETAMINE, URINE NEGATIVE (NEGATIVE); *BARBITURATE, URINE NEGATIVE (NEGATIVE); *BENZODIAZEPINE, URINE NEGATIVE (NEGATIVE); *CANNABINOID, URINE POSITIVE (NEGATIVE); *COCCAINE, URINE NEGATIVE (NEGATIVE); *OPIATE, URINE NEGATIVE (NEGATIVE); *PHENCYCLIDINE SCREEN,URINE NEGATIVE (NEGATIVE); FENTANYL, URINE NEGATIVE (NEGATIVE)
[2022-11-08] MEDS ORDERED: LORAZEPAM 0.5 MG TABLET PO ONE (02:00)
[2022-11-08 11:00] VITALS: O2SAT 99
== END 2022-11-08 11:28 | disposition short-term general hospital (02) ==
LOC: ER 22:55
DX: R45.851 Suicidal ideations (principal); F15.10 Other stimulant abuse, uncomplicated; R44.0 Auditory hallucinations; R44.1 Visual hallucinations; F10.129 Alcohol abuse with intoxication, unspecified; F41.9 Anxiety disorder, unspecified; R41.0 Disorientation, unspecified; F17.210 Nicotine dependence, cigarettes, uncomplicated; Z79.899 Other long term (current) drug therapy; Z20.822 Contact with and (suspected) exposure to COVID-19; Y90.2 Blood alcohol level of 40-59 mg/100 ml
CPT/HCPCS: 36415; 85025; A4663; G0480

== ENCOUNTER 2023-10-19 19:09 | Emergency (ER) | payer MEDICAID, OTHER ==
[~2023-10-19] VITALS: Ht 175.3 cm; Wt 72.6 kg
[~2023-10-19 19:09] MED LIST changes: -OLAN5TAB3 PO; -QUET300T2 PO; -ativan
[2023-10-19 20:43] LABS: BASOPHILS % (AUTO) 0.7 % (0.0-2.0); EOSINOPHILS % (AUTO) 0.6 % (0.0-7.0); HEMATOCRIT 43.9 % (36.7-47.1); HEMOGLOBIN 14.4 g/dL (12.5-16.3); LYMPHOCYTES % (AUTO) 32.1 % (20.5-51.5); MEAN CORPUSCULAR HEMOGLOBIN 28.2 uug (23.8-33.4); MEAN CORPUSCULAR HGB CONC 33 g/dL (32.5-36.3); MEAN CORPUSCULAR VOLUME 86.2 fL (73.0-96.2); MONOCYTES # (AUTO) 0.7 K/uL (0.1-1.30); MONOCYTES % (AUTO) 10.3 % (0.0-11.0); NEUTROPHILS # (AUTO) 3.6 K/uL (1.8-8.9); NEUTROPHILS % (AUTO) 56.3 % (38.5-71.5); PLATELET COUNT (AUTO) 192 K/uL (152-348); RED BLOOD CELL COUNT(AUTO) 5.09 MIL/uL (4.06-5.63); RED CELL DISTRIBUTION WIDTH 13.9 % (12.1-16.2); WHITE BLOOD COUNT (AUTO) 6.4 K/uL (3.6-10.2)
[2023-10-19 20:51] LABS: DIFFERENTIAL COMMENT 1; ETHANOL < 3 MG/DL (0-10)
[2023-10-19 21:00] LABS: ALANINE AMINOTRANSFERASE 29 U/L (16-63); ASPARTATE AMINOTRANSFERASE 16 U/L (15-37); BILIRUBIN,DIRECT 0.3 mg/dL (0.0-0.2); CALCIUM 8.8 mg/dL (8.5-10.1); CARBON DIOXIDE 29 mmol/L (21-32); CHLORIDE 102 mmol/L (98-107); CREATININE 1.1 mg/dL (0.6-1.3); POTASSIUM 3.4 mmol/L (3.5-5.1); SODIUM SERUM 142 mmol/L (136-145); TOTAL PROTEIN, SERUM 7.1 g/dL (6.4-8.2); UREA NITROGEN, BLOOD 14 mg/dL (7-18)
[2023-10-19 21:01] LABS: ACETAMINOPHEN < 2.0 ug/mL (10-30)
[2023-10-19 21:10] LABS: THYROID STIMULATING HORMONE 1.361 mIU/mL (0.358-3.740)
[2023-10-19 21:20] LABS: ALKALINE PHOSPHATASE 74 U/L (50-136); GLUCOSE 111 mg/dL (74-106)
[2023-10-19] MEDS ORDERED: LORAZEPAM 2 MG/1 ML VIAL ONE (22:06)
[2023-10-19] MEDS ORDERED: LORAZEPAM 1 MG TABLET ONE (22:10)
[2023-10-19] MEDS: LORAZEPAM 0.5 MG TABLET PO ONE (22:11)
[2023-10-19 23:13] LABS: *BILIRUBIN,URIN NEGATIVE (NEGATIVE); *CLARITY,URINE CLEAR (CLEAR); *COLOR,URINE YELLOW (YELLOW); *KETONES,URINE NEGATIVE (NEGATIVE); *PROTEIN,URINE 2+ (NEGATIVE); *UROBILINOGEN,URINE 0.2 E.U./dl (NORMAL); LEUKOCYTE ESTERASE ,URINE NEGATIVE (NEGATIVE); NITRITE, URINE NEGATIVE (NEGATIVE); UGLUCOSE NEGATIVE (NEGATIVE)
[2023-10-19 23:21] LABS: *BLOOD, URINE TRACE (NEGATIVE)
[2023-10-19 23:23] LABS: *AMPHETAMINE, URINE POSITIVE (NEGATIVE); *BARBITURATE, URINE NEGATIVE (NEGATIVE); *BENZODIAZEPINE, URINE NEGATIVE (NEGATIVE); *CANNABINOID, URINE POSITIVE (NEGATIVE); *COCCAINE, URINE NEGATIVE (NEGATIVE); *OPIATE, URINE NEGATIVE (NEGATIVE); *PHENCYCLIDINE SCREEN,URINE NEGATIVE (NEGATIVE); FENTANYL, URINE NEGATIVE (NEGATIVE)
[2023-10-19 23:39] LABS: BACTERIA,URINE FEW /HPF (NONE SEEN); MUCUS,URINE MODERATE /LPF (0-FEW); RBC,URINE 0-3 /HPF (0-3); SQUAMOUS EPITHELIAL CELL,UR FEW /HPF (NONE SEEN); WBC,URINE 0-3 /HPF (0-3)
[2023-10-20 07:30] VITALS: O2SAT 97
[2023-10-20] MEDS ORDERED: QUET100T PO (09:49)
== END 2023-10-20 10:30 | disposition home or self-care (01) ==
LOC: ER 19:21
DX: F23 Brief psychotic disorder (principal); F15.10 Other stimulant abuse, uncomplicated; F31.9 Bipolar disorder, unspecified; Z79.899 Other long term (current) drug therapy; Z20.822 Contact with and (suspected) exposure to COVID-19
CPT/HCPCS: 80076; 80048; 81001; 84443; 85025; 87426; 36415; 99283; 80299; 80320; 80307; J2060; A4606; A4663; G0480

== ENCOUNTER 2023-12-27 00:32 | Emergency (ER) | payer MEDICAID ==
[~2023-12-27] VITALS: Ht 175.3 cm; Wt 72.6 kg
[2023-12-27] MEDS ORDERED: ACETAMINOPHEN 500 MG TABLET ONE (01:54)
[2023-12-27] MEDS ORDERED: LORAZEPAM 1 MG TABLET ONE ×2 (01:54→04:08)
[2023-12-27] MEDS: ACETAMINOPHEN 500 MG TABLET PO ONE (01:55)
[2023-12-27] MEDS: LORAZEPAM 0.5 MG TABLET PO ONE ×2 (01:55→04:12)
[2023-12-27 02:48] LABS: BASOPHILS % (AUTO) 0.2 % (0.0-2.0); EOSINOPHILS % (AUTO) 0.3 % (0.0-7.0); HEMATOCRIT 47.6 % (36.7-47.1); HEMOGLOBIN 16.4 g/dL (12.5-16.3); LYMPHOCYTES # (AUTO) 1.7 K/uL (0.8-4.8); LYMPHOCYTES % (AUTO) 27.6 % (20.5-51.5); MEAN CORPUSCULAR HEMOGLOBIN 29.3 uug (23.8-33.4); MEAN CORPUSCULAR HGB CONC 35 g/dL (32.5-36.3); MEAN CORPUSCULAR VOLUME 84.8 fL (73.0-96.2); MONOCYTES # (AUTO) 0.5 K/uL (0.1-1.30); MONOCYTES % (AUTO) 7.4 % (0.0-11.0); NEUTROPHILS % (AUTO) 64.5 % (38.5-71.5); PLATELET COUNT (AUTO) 178 K/uL (152-348); RED BLOOD CELL COUNT(AUTO) 5.61 MIL/uL (4.06-5.63); RED CELL DISTRIBUTION WIDTH 13.4 % (12.1-16.2); WHITE BLOOD COUNT (AUTO) 6.3 K/uL (3.6-10.2)
[2023-12-27 03:13] LABS: ALANINE AMINOTRANSFERASE 39 U/L (16-63); ALBUMIN 4.4 g/dL (3.4-5.0); ALKALINE PHOSPHATASE 80 U/L (50-136); ASPARTATE AMINOTRANSFERASE 29 U/L (15-37); BILIRUBIN,DIRECT 0.1 mg/dL (0.0-0.2); BILIRUBIN,TOTAL 0.5 mg/dL (0.2-1.0); CALCIUM 9.5 mg/dL (8.5-10.1); CARBON DIOXIDE 29 mmol/L (21-32); CHLORIDE 100 mmol/L (98-107); CREATININE 1.3 mg/dL (0.6-1.3); GLUCOSE 88 mg/dL (74-106); POTASSIUM 3.8 mmol/L (3.5-5.1); SODIUM SERUM 139 mmol/L (136-145); TOTAL PROTEIN, SERUM 8.2 g/dL (6.4-8.2); UREA NITROGEN, BLOOD 16 mg/dL (7-18)
[2023-12-27 03:25] LABS: *BILIRUBIN,URIN NEGATIVE (NEGATIVE); *BLOOD, URINE 2+ (NEGATIVE); *CLARITY,URINE CLEAR (CLEAR); *COLOR,URINE YELLOW (YELLOW); *KETONES,URINE NEGATIVE (NEGATIVE); *PROTEIN,URINE NEGATIVE (NEGATIVE); *UROBILINOGEN,URINE 0.2 E.U./dl (NORMAL); LEUKOCYTE ESTERASE ,URINE NEGATIVE (NEGATIVE); NITRITE, URINE NEGATIVE (NEGATIVE); PH,URINE 5.5 (5.0-8.0); UGLUCOSE NEGATIVE (NEGATIVE)
[2023-12-27 03:39] LABS: *AMPHETAMINE, URINE POSITIVE (NEGATIVE); *BARBITURATE, URINE NEGATIVE (NEGATIVE); *BENZODIAZEPINE, URINE NEGATIVE (NEGATIVE); *CANNABINOID, URINE NEGATIVE (NEGATIVE); *COCCAINE, URINE NEGATIVE (NEGATIVE); *OPIATE, URINE NEGATIVE (NEGATIVE); *PHENCYCLIDINE SCREEN,URINE NEGATIVE (NEGATIVE); FENTANYL, URINE NEGATIVE (NEGATIVE)
[2023-12-27 03:49] LABS: BACTERIA,URINE FEW /HPF (NONE SEEN); MUCUS,URINE FEW /LPF (0-FEW); SPERM,URINE MODERATE /HPF (NONE SEEN); URIC ACID CRYSTALS,URINE FEW /HPF (NONE SEEN); WBC,URINE 0-3 /HPF (0-3)
[2023-12-27 03:50] LABS: THYROID STIMULATING HORMONE 1.177 mIU/mL (0.358-3.740)
[2023-12-27] MEDS ORDERED: IBUPROFEN 600 MG TABLET ONE (04:08)
[2023-12-27] MEDS ORDERED: METOCLOPRAMIDE HCL 10 MG TABLET ONE (04:08)
[2023-12-27] MEDS: METOCLOPRAMIDE HCL 10 MG TABLET PO ONE (04:12)
[2023-12-27] MEDS: IBUPROFEN 600 MG TABLET PO ONE (04:12)
[2023-12-27 13:01] VITALS: O2SAT 98
== END 2023-12-27 15:20 ==
LOC: EDBD → ER 00:42 → MERGE 00:42 → ER 15:20
DX: R07.89 Other chest pain (principal); T43.625A Adverse effect of amphetamines, initial encounter; R51.9 Headache, unspecified; F17.210 Nicotine dependence, cigarettes, uncomplicated; F12.90 Cannabis use, unspecified, uncomplicated; R03.0 Elevated blood-pressure reading, without diagnosis of hypertension; R00.0 Tachycardia, unspecified; Y92.89 Other specified places as the place of occurrence of the external cause
CPT/HCPCS: 36415; 71045; 83735; 84443; 84484; 85025; 85730; 98960; A4606; A4663; A9150; J8597